=== PATIENT | female | born 1950 | race Caucasian/White ===

== ENCOUNTER 2021-02-12 18:18 | Emergency (ER) | payer MEDICARE, SELFPAY ==
--- NOTE | ~2021-02-12 | XR_ITS ---
EXAMINATION: XR CHEST CLINICAL INFORMATION: Nausea. Palpitation COMPARISON: Chest x-ray of 02/14/2020 TECHNIQUE: Frontal view of the chest was obtained. FINDINGS: Cardiomediastinal silhouette is stable with upper limits of normal cardiac size versus mild cardiomegaly. Multiple cardiac leads and wires overlie the chest. No abnormal tracheal deviation. The lungs are mildly hypoexpanded. Stable mild elevation of the right hemidiaphragm. No focal consolidation, changes of congestion or pleural effusions are seen. No pneumothorax. No acute osseous abnormality. Is 0.9 cm round sclerotic density noted projecting over the left humeral head, has nonaggressive appearance and most probably represents a bone island. XR/XR chest 1V IMPRESSION: No radiographic evidence of pneumonia. No acute pulmonary process. No significant interval change is noted compared to last study.
[2021-02-12 18:21] VITALS: BP 165/82; PULSE 70; RESP 18; TEMP 37.1; O2SAT 96; BMI 29.8
--- NOTE | 2021-02-12 18:30 | ECG_ITS ---
Test Reason : AFIB Blood Pressure : / mmHG Vent. Rate : 066 BPM Atrial Rate : 066 BPM P-R Int : 138 ms QRS Dur : 110 ms QT Int : 414 ms P-R-T Axes : 065 -05 -12 degrees QTc Int : 434 ms Sinus rhythm Possible Left atrial enlargement Incomplete right bundle branch block Nonspecific ST abnormality Abnormal ECG When compared with ECG of 16-FEB-2020 05:56, Incomplete right bundle branch block is now Present Referred By: Tiny Galvan Electronically Signed By:JALEN BOWERS MD
--- NOTE | 2021-02-12 18:38 | ED.NAVMDI ---
HPI - Nausea/Vomiting/Diarrhea General Chief complaint: Nausea/Vomiting/Diarrhea Stated complaint: AFIB Time Seen by Provider: 02/12/21 18:28 Source: patient Mode of arrival: ambulatory Limitations: no limitations History of Present Illness HPI Narrative: nausea since 330pm no associated CP/SOB takes metoprolol and xarelto states she usually feels like this when she is in afib MD elicited complaint: nausea Pertinent past history: other (afib) Onset (ago): hour(s) (330pm today) Associated nausea: Yes Associated abdominal pain: No Location of pain: none Severity: mild Exacerbating factors: none Relieving factors: none Context: other (hx of same when in afib) Associated symptoms: other (palpitations) Related Data Home Medications Medication Instructions Recorded Confirmed albuterol sulfate 90 mcg/actuation INHALATION 07/14/20 07/15/20 aerosol inhaler cholecalciferol (vitamin D3) 50 50 mcg PO DAILY 07/14/20 07/15/20 mcg (2,000 unit) capsule Previous Rx's Medication Instructions Recorded metoprolol succinate 25 mg 25 mg PO DAILY 90 Days #90 tab 10/19/20 tablet,extended release 24 hr ropinirole 1 mg tablet 2 mg PO BEDTIME 90 Days #180 tab 10/24/20 rivaroxaban 20 mg tablet 20 mg PO DAILY 90 Days #90 tab 11/22/20 ondansetron 4 mg PO Q8H PRN #20 tab 02/12/21 Allergies Allergy/AdvReac Type Severity Reaction Status Date / Time No Known Allergies Allergy Unverified 07/01/20 15:51 [No Known Allergies*] Review of Systems Review of Systems: Constitutional : No Weight loss, No Fever, No Chills, No Fatigue, No Malaise ENT/Mouth : No sore throat, No Rhinorrhea Eyes: No Eye Pain, No Swelling, No Redness Cardiovascular : No Chest Pain, No SOB, No Dyspnea on Exertion, No Orthopnea, No Edema, pos Palpitations Respiratory : No Cough, No Sputum, No Wheezing Gastrointestinal : pos Nausea, No Vomiting, No Diarrhea, No Constipation, No abdominal Pain, No Hematochezia, No Melena Genitourinary : No Dysuria, No Urinary Frequency, No Hematuria, Musculoskeletal : No joint pain, No Myalgias, No Joint Swelling Skin : No Skin Lesions, No rash Neuro : No Weakness, No Numbness, No Dizziness, No Headache Psych : No Anxiety/Panic, No Depression Heme/Lymph: No Bruising, No Bleeding,No Lymphadenopathy Endocrine : No Polyuria, No Polydipsia All other systems reviewed and are negative Gastrointestinal: Gastrointestinal: Reports nausea PMFSH Past Medical History Attestation statement: The following information was validated with the patient. Medical History Atrial fibrillation Essential hypertension Restless leg syndrome Surgical History History of cataract surgery Hx of cholecystectomy Family History Family History (Updated 07/14/20 @ 15:10 by ROBBY Gale) Father No problems noted. Mother No problems noted. Brother No problems noted. Social History Social History (Updated 02/12/21 @ 18:45 by Tiny Galvan DO) Smoking Status: Never smoker Use of substances other than those prescribed or required for medical reasons: No Advance Directives: No Advance Directives Information Provided: Yes Physical Exam Vital Signs: Vital Signs: Last Vital Signs Temp 98.1 F 02/12/21 20:00 Pulse 66 02/12/21 22:00 Resp 16 02/12/21 22:00 BP 117/69 02/12/21 22:00 Pulse Ox 93 02/12/21 22:00 Body Mass Index 29.8 Appearance: Alert. Oriented X3. No acute distress. Eyes: Pupils equal, round and reactive to light. ENT: Pharynx normal. Neck: Normal inspection. Neck supple. CVS: Normal heart rate and rhythm. Pulses normal. Respiratory: No respiratory distress. Breath sounds normal. Abdomen: Soft and nontender. Skin: Skin warm and dry. Normal skin color. Normal skin turgor. Extremities: No lower extremity edema. No calf ttp Neuro: Oriented X 3. No motor deficit. No sensory deficit. Course Course Course Narrative: feels better, repeat troponin negative and flat - anticipate DC home has been in NSR during her visit MDM - Nausea/Vomiting/Diarrhea MDM Narrative Medical decision making narrative: 70 yo female with hx of afib on metoprolol and xarelto comes in with nausea since 330pm thinking she is in afib - currently NSR - no CP/SOB at this time will obtain labs, treat with zofran and repeat troponin - she might have been in afib today but converted back to NSR given her EKG with incomplete RBBB looks the same it did in February 2020 when she converted out of afib to NSR Lab Data Result diagrams: 02/12/21 18:49 02/12/21 18:49 Labs: Lab Results 02/12/21 02/12/21 02/12/21 Range/Units 18:48 18:49 18:49 WBC 10.5 (4.8-10.8) X10*3/uL RBC 4.67 (4.20-5.50) X10*6/uL Hgb 12.9 (12.0-16.0) g/dl Hct 39.6 (37-47) % MCV 84.8 (80-98) fL MCH 27.6 (27.0-33.0) pg MCHC 32.6 (31.0-35.0) g/dl RDW 13.1 (11.0-16.0) % Plt Count 298 (160-400) X10*3/uL MPV 9.9 (9.4-12.3) fL Immature Gran % (Auto) 0.3 (0.0-0.4) % Neut % (Auto) 72.3 (45-73) % Lymph % (Auto) 16.2 L (20-40) % [place] % (Auto) 10.5 (2-11) % Eos % (Auto) 0.3 (0-4) % Baso % (Auto) 0.4 (0-2) % Lymph # (Auto) 1.7 (1.2-4.9) X10*3/uL [place] # (Auto) 1.1 (0.1-1.2) X10*3/uL Eos # (Auto) 0.0 (0.0-0.4) X10*3/uL Baso # (Auto) 0.0 (0.0-0.2) X10*3/uL Abs Immat Gran (auto) 0.03 (0.00-0.03) X10*3/uL Absolute Neuts (auto) 7.6 (2.0-8.3) X10*3/uL Absolute Nucleated RBC 0.000 (0.0-0.012) X10*3/uL Nucleated RBC % (auto) 0.0 (0.0-0.2) /100WBC PT 18.2 H (10.8-13.0) SEC INR 1.5 H (0.9-1.1) APTT 38.3 H (24.1-38.0) SEC Sodium (135-145) mmol/L Potassium (3.3-5.1) mmol/L Chloride (96-108) mmol/L Carbon Dioxide (22-29) mmol/L Anion Gap (12-20) BUN (9-16) mg/dL Creatinine (0.5-1.4) mg/dL Estim Creat Clear Calc Estimated GFR Random Glucose (60-115) mg/dL Calcium (8.4-10.2) mg/dL Magnesium (1.6-2.6) mg/dL Total Bilirubin (0.0-1.0) mg/dL Direct Bilirubin (0.0-0.5) mg/dL AST (5-31) U/L ALT (0-31) U/L Alkaline Phosphatase (39-117) U/L Troponin I High Sens 6.7 (<3.5-17.0) ng/L B-Natriuretic Peptide 145 H (<100) pg/mL Total Protein (6.5-8.0) g/dL Albumin (3.5-5.0) g/dL Lipase (8-78) U/L Urine Color Urine Appearance Urine pH (5.0-8.0) Ur Specific [place] (1.005-1.025) Urine Protein (NEG-TRACE) MG/DL Urine Glucose (UA) (NEG) MG/DL Urine Ketones (NEG) MG/DL Urine Blood (NEG) Urine Nitrite (NEG) Ur Leukocyte Esterase (NEG) Urine RBC (0) /HPF Urine WBC (0-4) /HPF Ur Squamous Epith Cells /LPF Urine Bacteria /LPF 02/12/21 02/12/21 02/12/21 Range/Units 18:49 19:53 22:09 WBC (4.8-10.8) X10*3/uL RBC (4.20-5.50) X10*6/uL Hgb (12.0-16.0) g/dl Hct (37-47) % MCV (80-98) fL MCH (27.0-33.0) pg MCHC (31.0-35.0) g/dl RDW (11.0-16.0) % Plt Count (160-400) X10*3/uL MPV (9.4-12.3) fL Immature Gran % (Auto) (0.0-0.4) % Neut % (Auto) (45-73) % Lymph % (Auto) (20-40) % [place] % (Auto) (2-11) % Eos % (Auto) (0-4) % Baso % (Auto) (0-2) % Lymph # (Auto) (1.2-4.9) X10*3/uL [place] # (Auto) (0.1-1.2) X10*3/uL Eos # (Auto) (0.0-0.4) X10*3/uL Baso # (Auto) (0.0-0.2) X10*3/uL Abs Immat Gran (auto) (0.00-0.03) X10*3/uL Absolute Neuts (auto) (2.0-8.3) X10*3/uL Absolute Nucleated RBC (0.0-0.012) X10*3/uL Nucleated RBC % (auto) (0.0-0.2) /100WBC PT (10.8-13.0) SEC INR (0.9-1.1) APTT (24.1-38.0) SEC Sodium 141 (135-145) mmol/L Potassium 4.8 (3.3-5.1) mmol/L Chloride 107 (96-108) mmol/L Carbon Dioxide 23 (22-29) mmol/L Anion Gap 16 (12-20) BUN 15 (9-16) mg/dL Creatinine 0.90 (0.5-1.4) mg/dL Estim Creat Clear Calc 61.6 Estimated GFR > 60 Random Glucose 107 (60-115) mg/dL Calcium 8.7 (8.4-10.2) mg/dL Magnesium 2.0 (1.6-2.6) mg/dL Total Bilirubin 0.3 (0.0-1.0) mg/dL Direct Bilirubin < 0.2 (0.0-0.5) mg/dL AST 19 (5-31) U/L ALT 17 (0-31) U/L Alkaline Phosphatase 67 (39-117) U/L Troponin I High Sens 7.4 (<3.5-17.0) ng/L B-Natriuretic Peptide (<100) pg/mL Total Protein 6.5 (6.5-8.0) g/dL Albumin 3.9 (3.5-5.0) g/dL Lipase 30 (8-78) U/L Urine Color STRAW Urine Appearance CLEAR Urine pH 6.0 (5.0-8.0) Ur Specific [place] 1.010 (1.005-1.025) Urine Protein NEG (NEG-TRACE) MG/DL Urine Glucose (UA) NEG (NEG) MG/DL Urine Ketones NEG (NEG) MG/DL Urine Blood TRACE (NEG) Urine Nitrite NEG (NEG) Ur Leukocyte Esterase NEG (NEG) Urine RBC 1-4 (0) /HPF Urine WBC 0 (0-4) /HPF Ur Squamous Epith Cells NONE /LPF Urine Bacteria NONE /LPF ECG Data Attestation: I personally reviewed and interpreted this ECG as follows: ECG interpretation date: 02/12/21 ECG interpretation time: 18:42 Interpretation: Rate: 66 Rhythm: NSR [place]: left Normal P waves. Normal DARIUS. incomplete RBBB ST T wave : nonspecific, no BILLY qTC: normal prior studies: unchanged 02/2020 The study has been interpreted contemporaneously by me. . Discharge Plan Discharge Clinical Impression: Nausea Patient Disposition: Home, Self-Care Instructions: Acute Nausea and Vomiting (ED) Additional Instructions: return to ED for any worsening symptoms or concerns Prescriptions: New ondansetron 4 mg tablet,disintegrating 4 mg PO Q8H PRN (Reason: nausea and vomiting) Qty: 20 RF: 0 No Action metoprolol succinate 25 mg tablet extended release 24 hr 25 mg PO DAILY 90 Days Qty: 90 RF: 1 ropinirole 1 mg tablet 2 mg PO BEDTIME 90 Days Qty: 180 RF: 4 rivaroxaban 20 mg tablet 20 mg PO DAILY 90 Days Qty: 90 RF: 2 albuterol sulfate 90 mcg/actuation HFA aerosol inhaler inhalation RF: 0 cholecalciferol (vitamin D3) 50 mcg (2,000 unit) capsule 50 mcg PO DAILY RF: 0 Referrals: Gume Robertson MD [Physician] - 2 days
[2021-02-12 18:54] LABS: MANUAL DIFF FLAG NO
[2021-02-12 18:56] LABS: Basophils Percent Auto 0.4 % (0-2); Eosinophils Percent Auto 0.3 % (0-4); Hematocrit 39.6 % (37-47); Hemoglobin 12.9 g/dl (12.0-16.0); Imm Gran Abs Auto 0.03 X10*3/uL (0.00-0.03); Imm Gran Pct Auto 0.3 % (0.0-0.4); Lymphocytes Absolute Auto 1.7 X10*3/uL (1.2-4.9); Lymphocytes Percent Auto 16.2 % (20-40); Mean Corpuscular HGB Conc 32.6 g/dl (31.0-35.0); Mean Corpuscular Hemoglobin 27.6 pg (27.0-33.0); Mean Corpuscular Volume 84.8 fL (80-98); Mean Platelet Volume 9.9 fL (9.4-12.3); Monocytes Absolute Auto 1.1 X10*3/uL (0.1-1.2); Monocytes Percent Auto 10.5 % (2-11); Neutrophils Absolute Auto 7.6 X10*3/uL (2.0-8.3); Neutrophils Percent Auto 72.3 % (45-73); Platelet Count 298 X10*3/uL (160-400); Red Blood Count 4.67 X10*6/uL (4.20-5.50); Red Cell Distribution Width 13.1 % (11.0-16.0); White Blood Count 10.5 X10*3/uL (4.8-10.8)
[2021-02-12] MEDS: ondansetron HCL 4 MG/2 ML VIAL IVPUSH ×2 (18:57→20:10)
[2021-02-12 19:13] LABS: INTERNATIONAL NORM RATIO 1.5 (0.9-1.1); Prothrombin Time 18.2 SEC (10.8-13.0)
[2021-02-12 19:16] LABS: Partial Thromboplastin Time 38.3 SEC (24.1-38.0)
[2021-02-12 19:24] LABS: Alanine Aminotransferase 17 U/L (0-31); Albumin Level 3.9 g/dL (3.5-5.0); Alkaline Phosphatase 67 U/L (39-117); Anion Gap 16 (12-20); Aspartate Amino Transferase 19 U/L (5-31); Bilirubin Direct < 0.2 mg/dL (0.0-0.5); Bilirubin Total 0.3 mg/dL (0.0-1.0); Blood Urea Nitrogen 15 mg/dL (9-16); Calcium 8.7 mg/dL (8.4-10.2); Carbon Dioxide 23 mmol/L (22-29); Chloride 107 mmol/L (96-108); Creatinine Clr Calc Pharmacy 61.6; Estimated Glomerular Filt Rate > 60; Glucose Random 107 mg/dL (60-115); Lipase 30 U/L (8-78); Potassium 4.8 mmol/L (3.3-5.1); Sodium 141 mmol/L (135-145); Total Protein 6.5 g/dL (6.5-8.0)
[2021-02-12 19:31] LABS: B Type Natriuretic Peptide 145 pg/mL (<100); Troponin-I High Sensitivity 6.7 ng/L (<3.5-17.0)
[2021-02-12 20:00] VITALS: BP 136/63; PULSE 60; RESP 16; TEMP 36.7; O2SAT 95
[2021-02-12 20:08] LABS: Glucose Urine UA NEG (NEG); Leukocyte Esterase Urine NEG (NEG); Nitrite Urine NEG (NEG); Urine Blood TRACE (NEG); Urine Ketones NEG (NEG); Urine Protein NEG (NEG-TRACE)
[2021-02-12 20:10] LABS: Appearance Urine CLEAR; Color Urine STRAW
--- NOTE | 2021-02-12 20:11 | PC.NURSE ---
pt medicated for nausea related to afib, pt is now in nsr no ectopy. skin pink warm and dry, rr even and reg no s/s of resp distress. pt aox3. pt states she has diarrhea when she has a upset stomach, pt is worring about being nausea when pt was in afib.
[2021-02-12 20:18] LABS: WBC Urine 0 /HPF (0-4)
[2021-02-12] MEDS: LORazepam 2 MG/ML VIAL 0.5 MG IVPUSH (20:53)
[2021-02-12 20:55] VITALS: BP 131/59; PULSE 59; RESP 18; O2SAT 95
[2021-02-12 22:00] VITALS: BP 117/69; PULSE 66; RESP 16; O2SAT 93
[2021-02-12] MEDS: rOPINIRole HCL 2 MG TABLET PO (22:17)
--- NOTE | 2021-02-12 22:20 | PC.NURSE ---
nausea resolved after receiving the ativan. good effect.
[2021-02-12 22:46] LABS: Troponin-I High Sensitivity 7.4 ng/L (<3.5-17.0)
== END 2021-02-12 23:29 | disposition home or self-care (01) ==
PROVIDERS: Emergency Provider Emergency Medicine; PCP Family Medicine
DX: R11.2 Nausea with vomiting, unspecified (principal); I48.91 Unspecified atrial fibrillation; Z79.899 Other long term (current) drug therapy
CPT/HCPCS: 36415; 71045; 80048; 80076; 81001; 83690; 83735; 83880; 84484; 85025; 85610; 85730; 93005; 96366; 96374; 96375; 96376; 99284; J2060; J2405

== ENCOUNTER → 2021-02-25 11:08 | Outpatient (BNVA) | payer MEDICARE, SELFPAY | PROVIDERS: PCP Family Medicine; Referring Provider Family Medicine; Visit Provider Internal Medicine Cardiovascular Disease | DX: I48.0 Paroxysmal atrial fibrillation (principal); I10 Essential (primary) hypertension | CPT/HCPCS: 99212 ==

== ENCOUNTER → 2021-04-06 07:18 | Outpatient (REF) | payer MEDICARE, SELFPAY ==
--- NOTE | 2021-04-06 07:22 | CA_ITS ---
Transthoracic Echocardiogram Patient (Last, First, Middle): Anurag Baron L Gender: Female Date of : 1950 Age: 71 Procedure Date: 04/06/2021 Procedure Type: Transthoracic Echocardiogram Location: OP Height: 167.64 cm Weight: 81.65 kg BSA: 1.91 m2 Heart Rate: bpm BP: 122 / 80 mmHg Registered Clinical Dietitian: Referring MD: Gume Robertson MD Film Historian: Gume Robertson MD Symptoms: I48.0 - Paroxysmal atrial fibrillation Study Quality: Good ECG Rhythm: Sinus Conclusions: - 1. Normal LV systolic function with elevated LVEDP 2. Mild left atrial enlargement 3. Mild mitral regurgitation 4. Normal RV systolic pressure 5. No pericardial effusion Findings Left Ventricle Normal left ventricular size, thickness, and systolic function. The visually estimated ejection fraction is between 60-65%. There is no evidence of regional wall motion abnormalities. Spectral Doppler is indicative of an impaired relaxation filling pattern. Elevated left ventricular end diastolic pressure. E/E prime ratio is between 8 and 15 consistent with indeterminate filling pressures. There is mild septal asymmetric hypertrophy. Right Ventricle Normal right ventricular cavity size and systolic function. Atria The left atrium is mildly dilated. There is no evidence of interatrial shunt. The right atrium is normal in size. Aortic Valve Normal aortic valve structure and function. There is no aortic valve stenosis. There is no aortic valve regurgitation. Mitral Valve There is mild anterior mitral leaflet thickening. There is mild mitral valve regurgitation. There is no mitral valve stenosis. Pulmonic Valve The pulmonic valve is likely normal. There is trace to mild pulmonic valve regurgitation. Tricuspid Valve Normal tricuspid valve structure. There is trace tricuspid valve regurgitation. The right ventricular systolic pressure is normal. The right ventricular systolic pressure is 29 mmHg. Normal right atrial pressure. There is no evidence of pulmonary hypertension. Great Vessels All visible segments of the aorta are normal in size. The pulmonary artery was not well visualized. Venous The inferior vena cava is normal in size and collapses greater than 50% with inspiration. Pericardium/Pleural There is no evidence of pericardial effusion. Prior Study Comparison No significant change compared to prior study dated: 02/16/2020. Measurements 2D Linear Measurements IVSd: 1.32 0.6-0.9/0.6-1.0 cm LVIDd: 3.79 3.9-5.3/4.2-5.9 cm LVIDs: 2.64 2.0-3.6 cm LVPWd: 0.89 0.7-1.1 cm Ao Root: 2.78 2.1-3.5 cm LV Mass: 240.93 67-162/88-224 g LVOT Diam: 1.98 3.0+(-)1.3 cm Mitral Valve MV Pk E: 0.76 MV PK A: 0.70 MV Decel Time: 226.59 E/A: 1.09 E'Lateral: 0.08 E'Medial: 0.06 Decel [place]: 3.34 Aortic Valve AoV Pk Oleg: 1.44 AoV Mn Oleg: 1.02 AoV VTI: 0.38 AoV Pk Grad: 8.33 Aov Mn Grad: 4.72 LVOT LVOT Pk Oleg: 1.03 LVOT Mn Oleg: 0.64 LVOT VTI: 0.31 LVOT Pk Grad: 4.21 LVOT Mn Grad: 1.99 LVOT Diam: 1.98 LVOT Area: 3.09 Diastolic Function MV Pk E: 0.76 MV Pk A: 0.70 E/A: 1.09 E'Medial: 0.06 E' Laterial: 0.08 Tricuspid Valve TR Pk Oleg: 2.55 TR Pk Grad: 26.11 RA Press: 3.00 RVSP: 29.00 Great Vessels Aorta Ao Root-2D: 2.78 2.0-3.7 cm Ao Asc: 2.78 2.1-3.4 cm Pulmonary Valve PV Pk Oleg: 0.94 Peak PV Grad: 3.55 Updated in Other Vendor System with Status of Final Gume Robertson MD electronically signed on 04/06/2021 3:26:30 PM with status of Final
--- NOTE | 2021-04-06 07:24 | ECG_ITS ---
Hook-up date: 2021-04-06 08:40:00 Duration: 25:37:00 Test Indications: PAF Medications: 40733 QRS complexes 18 Ventricular ectopics which represent <1 % of total QRS comp. 70 Supraventricular ectopics which represent <1 % of total QRS comp. * Paced QRS complexs which represent % of total QRS comp. VENTRICULAR ECTOPY 16 Isolated 0 Bigeminal Cycles 1 Couplets 0 Runs 0 Beats in Runs * Beats LONGEST at * BPM at :: -- * Beats FASTEST at * BPM at :: -- SUPRAVENTRICULAR ECTOPY 55 Isolated 4 Couplets 2 Runs 7 Beats in Runs 4 Beats LONGEST at 116 BPM at 04:18:46 2021-04-07 3 Beats FASTEST at 140 BPM at 21:20:18 2021-04-06 HEART RATES 48 MIN at 05:48:48 2021-04-07 59 AVG 99 MAX at 06:53:13 2021-04-07 LONGEST RR 1.5120 secs at 01:24:25 2021-04-07 S-T LEVELS Channel 1 - 128 mm at 08:40:00 2021-04-06 - 128 mm at 08:40:00 2021-04-06 Channel 2 - 128 mm at 08:40:00 2021-04-06 - 128 mm at 08:40:00 2021-04-06 Channel 3 - 128 mm at 02:75:91 -- - 128 mm at 02:75:91 Basic rhythm Normal sinus rhythm No long pause or profound bradycardia Frequent Sinus bradycardia , 51% of time HR < 60 bpm Rare ectopics Patient reported symptoms of fluttering correlated with NSR Referred By: Gume Robertson Overread By: GUME ROBERTSON MD
== END ==
LOC: HO.CARD 07:18
PROVIDERS: PCP Family Medicine; Visit Provider Internal Medicine Cardiovascular Disease
DX: I48.0 Paroxysmal atrial fibrillation (principal)
CPT/HCPCS: 93225; 93226; 93306

== ENCOUNTER → 2021-04-26 10:48 | Outpatient (BNVA) | payer MEDICARE, SELFPAY | PROVIDERS: PCP Family Medicine; Visit Provider Internal Medicine | DX: G25.81 Restless legs syndrome (principal); J45.909 Unspecified asthma, uncomplicated | CPT/HCPCS: 99212 ==

== ENCOUNTER → 2021-04-27 09:20 | Outpatient (BNVA) | payer MEDICARE, SELFPAY | PROVIDERS: PCP Family Medicine; Referring Provider Family Medicine; Visit Provider Internal Medicine Cardiovascular Disease | DX: I48.0 Paroxysmal atrial fibrillation (principal); I10 Essential (primary) hypertension | CPT/HCPCS: 93005; 99212 ==

== ENCOUNTER 2021-07-12 09:23 | Outpatient (REF) | payer MEDICARE, SELFPAY ==
[2021-07-12 11:12] LABS: Alanine Aminotransferase 23 U/L (0-31); Albumin Level 4.1 g/dL (3.5-5.0); Alkaline Phosphatase 82 U/L (39-117); Anion Gap 11 (12-20); Aspartate Amino Transferase 21 U/L (5-31); Bilirubin Total 0.4 mg/dL (0.0-1.0); Blood Urea Nitrogen 14 mg/dL (9-16); Calcium 9.2 mg/dL (8.4-10.2); Carbon Dioxide 26 mmol/L (22-29); Chloride 108 mmol/L (96-108); Cholesterol 189 mg/dL; Estimated Glomerular Filt Rate > 60; Glucose Fasting 99 mg/dL (60-99); HDL Cholesterol 55 mg/dL; LDL Cholesterol Calculated 83 mg/dl; Potassium 4.6 mmol/L (3.3-5.1); Sodium 140 mmol/L (135-145); Total Protein 6.9 g/dL (6.5-8.0); Triglycerides 257 mg/dL
[2021-07-12 11:32] LABS: TSH reflex Free T4 0.77 uIU/mL (0.32-4.0)
== END 2021-07-12 09:24 | disposition home or self-care (01) ==
LOC: HO.LAB 09:23
PROVIDERS: PCP Family Medicine; Referring Provider Family Medicine; Visit Provider Internal Medicine Cardiovascular Disease
DX: Z00.00 Encounter for general adult medical examination without abnormal findings (principal); I48.0 Paroxysmal atrial fibrillation; I10 Essential (primary) hypertension
CPT/HCPCS: 36415; 80053; 80061; 84443; 93005; 99212

== ENCOUNTER 2022-02-24 16:44 | Emergency (ER) | payer MEDICARE, SELFPAY ==
--- NOTE | ~2022-02-24 | XR_ITS ---
EXAMINATION: XR CHEST CLINICAL INFORMATION: A. Fib COMPARISON: 02/12/2021 TECHNIQUE: Frontal view of the chest was obtained. FINDINGS: No significant abnormality is noted involving the heart, lungs, mediastinum, bony thorax or soft tissues. XR/XR chest 1V IMPRESSION: Unremarkable examination.
[2022-02-24 16:50] VITALS: BP 138/90; PULSE 132; RESP 19; TEMP 36.6; O2SAT 99; BMI 29.3
--- NOTE | 2022-02-24 16:53 | ECG_ITS ---
Test Reason : A FIB Blood Pressure : / mmHG Vent. Rate : 119 BPM Atrial Rate : 256 BPM P-R Int : 000 ms QRS Dur : 124 ms QT Int : 328 ms P-R-T Axes : 097 -33 -17 degrees QTc Int : 461 ms Atrial flutter with variable A-V block Left axis deviation Right bundle branch block Abnormal ECG When compared with ECG of 12-FEB-2021 18:33, Atrial flutter has replaced Sinus rhythm Vent. rate has increased BY 53 BPM Right bundle branch block has replaced Incomplete right bundle branch block Referred By: Generic ED Physician Electronically Signed By:JALEN BOWERS MD
[2022-02-24 17:51] LABS: MANUAL DIFF FLAG NO
[2022-02-24 18:01] LABS: INTERNATIONAL NORM RATIO 1.2 (0.9-1.1); Prothrombin Time 13.8 SEC (9.9-13.0)
[2022-02-24 18:05] LABS: Anion Gap 11 (12-20); Blood Urea Nitrogen 15 mg/dL (9-16); Calcium 9.6 mg/dL (8.4-10.2); Carbon Dioxide 25 mmol/L (22-29); Chloride 110 mmol/L (96-108); Creatinine Clr Calc Pharmacy 62.3; Estimated Glomerular Filt Rate > 60; Glucose Random 91 mg/dL (60-115); Potassium 4.2 mmol/L (3.3-5.1); Sodium 142 mmol/L (135-145)
[2022-02-24 18:09] LABS: Basophils Absolute Auto 0.1 X10*3/uL (0.0-0.2); Basophils Percent Auto 0.6 % (0-2); Eosinophils Absolute Auto 0.1 X10*3/uL (0.0-0.4); Eosinophils Percent Auto 1.4 % (0-4); Hematocrit 40.9 % (37.0-47.0); Hemoglobin 13.4 g/dl (12.0-16.0); Imm Gran Abs Auto 0.06 X10*3/uL (0.00-0.03); Imm Gran Pct Auto 0.7 % (0.0-0.4); Lymphocytes Absolute Auto 2.7 X10*3/uL (1.2-4.9); Lymphocytes Percent Auto 31.3 % (20-40); Mean Corpuscular HGB Conc 32.8 g/dl (31.0-35.0); Mean Corpuscular Hemoglobin 28.2 pg (27.0-33.0); Mean Corpuscular Volume 86.1 fL (80.0-98.0); Mean Platelet Volume 10.4 fL (9.4-12.3); Monocytes Absolute Auto 0.8 X10*3/uL (0.1-1.2); Monocytes Percent Auto 8.9 % (2-11); Neutrophils Absolute Auto 4.9 x10*3/uL (2.0-8.3); Neutrophils Percent Auto 57.1 % (45-73); Platelet Count 324 X10*3/uL (160-400); Red Blood Count 4.75 X10*6/uL (4.20-5.50); Red Cell Distribution Width 13.2 % (11.0-16.0); White Blood Count 8.5 X10*3/uL (4.8-10.8)
[2022-02-24 18:12] LABS: Troponin-I High Sensitivity 4.5 ng/L (<3.5-17.0)
--- NOTE | 2022-02-24 20:01 | ECG_ITS ---
Test Reason : REPEAT EKG Blood Pressure : / mmHG Vent. Rate : 058 BPM Atrial Rate : 058 BPM P-R Int : 150 ms QRS Dur : 114 ms QT Int : 434 ms P-R-T Axes : 065 -21 -13 degrees QTc Int : 426 ms Sinus bradycardia Right bundle branch block Minimal voltage criteria for LVH, may be normal variant ( R in aVL ) Abnormal ECG When compared with ECG of 24-FEB-2022 17:28, Sinus rhythm has replaced Atrial flutter Vent. rate has decreased BY [address] no longer elevated in Inferior leads Referred By: Racheal Brunson Electronically Signed By:JALEN BOWERS MD
--- NOTE | 2022-02-24 20:06 | ED.GENADULT ---
HPI - General Adult General Chief complaint: Arrhythmia/Palpitations Stated complaint: Afib Time Seen by Provider: 02/24/22 18:43 Source: patient Mode of arrival: ambulatory History of Present Illness HPI narrative: 71-year-old with a past medical history of asthma, hypertension, restless leg syndrome, AFib on metoprolol and flecainide presenting to the ED complaining of palpitations beginning around 15:00. Admits to taking additional 100 mg of flecainide when symptoms began. Denies chest pain, shortness of breath, fever, cough, lightheadedness/ dizziness, pedal edema, calf pain, abdominal pain, recent illness Onset (ago): hour(s) Related Data Home Medications Medication Instructions Recorded Confirmed albuterol sulfate 90 mcg/actuation INHALATION 07/14/20 07/12/21 aerosol inhaler cholecalciferol (vitamin D3) 50 50 mcg PO DAILY 07/14/20 07/12/21 mcg (2,000 unit) capsule Previous Rx's Medication Instructions Recorded ondansetron 4 mg disintegrating 4 mg PO Q8H PRN #20 tab 02/25/21 tablet flecainide 50 mg tablet 50 mg PO Q12H #200 tab 04/27/21 metoprolol succinate 25 mg 25 mg PO DAILY 90 Days #100 tab 04/27/21 tablet,extended release 24 hr rivaroxaban 20 mg tablet 20 mg PO DAILY 90 Days #90 tab 04/27/21 pramipexole 0.25 mg tablet 0.25 mg PO BEDTIME 90 Days #90 tab 07/11/21 flecainide 100 mg tablet 100 mg PO Q12H 14 Days #28 tab 02/24/22 Allergies Allergy/AdvReac Type Severity Reaction Status Date / Time No Known Allergies Allergy Verified 07/06/21 10:02 [No Known Allergies*] Review of Systems Review of Systems: Constitutional: No Fever, No Chills, No Fatigue, No Malaise ENT/Mouth: No Hearing loss, No Ear Pain, No sore throat, No Rhinorrhea, No Swallowing Difficulty Eyes: No Eye Pain, No Swelling, No Redness Cardiovascular: No Chest Pain, No SOB, No Dyspnea on Exertion, No Orthopnea, No Edema, + Palpitations Respiratory: No Cough, No Sputum, No Wheezing, No Dyspnea Gastrointestinal: No Nausea, No Vomiting, No Diarrhea, No Constipation, No Abdominal pain Genitourinary: No Dysuria, No Urinary Frequency, No Flank Pain, No Urinary Flow Changes, No Hesitancy Musculoskeletal: No joint pain, No Myalgias, No Joint Swelling Skin: No Skin Lesions, No rash Neuro: No Weakness, No Numbness, No Paresthesias, No Loss of Consciousness, No Dizziness, No Headache Yes all other systems are reviewed and are negative [facility] Past Medical History Attestation statement: The following information was validated with the patient. Medical History Brittle asthma Bronchial asthma Essential hypertension Paroxysmal atrial fibrillation Restless leg syndrome Surgical History History of cataract surgery Hx of cholecystectomy Family History Family History Father No problems noted. Mother No problems noted. Brother No problems noted. Social History Social History Housing: House Patient Tobacco Use Status: Never used Tobacco Advance Directives: No Advance Directives Information Provided: Yes Current occupational status: retired Physical Exam ED Vital Signs: Vital Signs - 24 hr 02/24/22 16:50 02/24/22 20:10 Temperature 98 F Pulse Rate 132 H 71 Respiratory Rate 19 15 Blood Pressure 138/90 H Pulse Oximetry 99 BMI result Body Mass Index 29.3 Const General: cooperative, healthy appearing and no acute distress Orientation/consciousness: patient oriented x3 Limitations: no limitations HENNC Head: Yes normal to inspection and Yes atraumatic Ears: hearing grossly normal bilaterally General nose exam: Normal external nose present Face and sinus: Yes normal facial exam Eyes General: appearance normal, both eyes and all related structures EOM: EOMs intact bilaterally Neck Neck: Yes normal visual inspection and Yes no meningeal signs Resp Effort & Inspection: normal respiratory effort and no respiratory distress Auscultation: clear to auscultation bilaterally, no rales, no rhonchi and no wheezes Cardio Rate: regular rate Heart sounds: S1 normal heart sound present and S2 normal heart sound present GI Inspection: Yes normal to inspection Palpation (GI): Soft to palpation, nontender and no guarding Skin Rashes: no rashes Wounds: no wounds Neuro General: patient oriented x3, tone normal and no meningeal signs Gait exam (Neuro): Normal gait present Extrem General: Yes normal to inspection, Yes no pedal edema and Yes no calf tenderness Course Course Course Narrative: - no leukocytosis. BNP chronically elevated Upon my evaluation patient is in sinus rhythm. Repeat EKG showing sinus bradycardia at a rate of 58. - Case discussed with patient's tooth cutter clutch, Dr. Robertson, recommended increasing patient's daily flecainide to 100 mg b.i.d. Does not recommend any additional doses tonight, patient can be discharged 2139--XR chest 1V IMPRESSION: Unremarkable examination. >> results discussed with patient including worrisome signs and symptoms and strict return precautions and need to follow-up with Dr. Robertson which she reports she has on Sunday Medical Decision Making MDM Narrative Medical decision making narrative: 71-year-old with a past medical history of asthma, hypertension, restless leg syndrome, AFib on metoprolol and flecainide presenting to the ED complaining of palpitations beginning around 15:00. On exam initially tachycardic to 132, initially EKG showing a flutter with a rate of 119, patient was in waiting room for 3+ hours, on my evaluation heart rate in 60s. Lungs CTA, no pedal edema. Likely patient converted s/p flecainide at home. Plan: Repeat EKG, labs, CXR, consult Cardiology Medical Records Medical records reviewed: Yes I reviewed the patient's medical records. Lab Data Lab results reviewed: Yes I reviewed the patient's lab results. Result diagrams: 02/24/22 17:41 02/24/22 17:41 Labs: Lab Results 02/24/22 02/24/22 02/24/22 Range/Units 17:41 17:41 17:41 WBC 8.5 (4.8-10.8) X10*3/uL RBC 4.75 (4.20-5.50) X10*6/uL Hgb 13.4 (12.0-16.0) g/dl Hct 40.9 (37.0-47.0) % MCV 86.1 (80.0-98.0) fL MCH 28.2 (27.0-33.0) pg MCHC 32.8 (31.0-35.0) g/dl RDW 13.2 (11.0-16.0) % Plt Count 324 (160-400) X10*3/uL MPV 10.4 (9.4-12.3) fL Immature Gran % (Auto) 0.7 H (0.0-0.4) % Neut % (Auto) 57.1 (45-73) % Lymph % (Auto) 31.3 (20-40) % Dodge % (Auto) 8.9 (2-11) % Eos % (Auto) 1.4 (0-4) % Baso % (Auto) 0.6 (0-2) % Lymph # (Auto) 2.7 (1.2-4.9) X10*3/uL Dodge # (Auto) 0.8 (0.1-1.2) X10*3/uL Eos # (Auto) 0.1 (0.0-0.4) X10*3/uL Baso # (Auto) 0.1 (0.0-0.2) X10*3/uL Abs Immat Gran (auto) 0.06 H (0.00-0.03) X10*3/uL Absolute Neuts (auto) 4.9 (2.0-8.3) x10*3/uL Absolute Nucleated RBC 0.000 (0.0-0.012) X10*3/uL Nucleated RBC % (auto) 0.0 (0.0-0.2) /100WBC PT (9.9-13.0) SEC INR (0.9-1.1) Sodium 142 (135-145) mmol/L Potassium 4.2 (3.3-5.1) mmol/L Chloride 110 H (96-108) mmol/L Carbon Dioxide 25 (22-29) mmol/L Anion Gap 11 L (12-20) BUN 15 (9-16) mg/dL Creatinine 0.87 (0.5-1.4) mg/dL Estim Creat Clear Calc 62.3 Estimated GFR > 60 Random Glucose 91 (60-115) mg/dL Calcium 9.6 (8.4-10.2) mg/dL Magnesium 1.9 (1.6-2.6) mg/dL Total Bilirubin 0.2 (0.0-1.0) mg/dL Direct Bilirubin 0.2 (0.0-0.5) mg/dL AST 20 (5-31) U/L ALT 24 (0-31) U/L Alkaline Phosphatase 83 (39-117) U/L Troponin I High Sens 4.5 (<3.5-17.0) ng/L B-Natriuretic Peptide 192 H (<100) pg/mL Total Protein 7.1 (6.5-8.0) g/dL Albumin 4.0 (3.5-5.0) g/dL 02/24/22 Range/Units 17:41 WBC (4.8-10.8) X10*3/uL RBC (4.20-5.50) X10*6/uL Hgb (12.0-16.0) g/dl Hct (37.0-47.0) % MCV (80.0-98.0) fL MCH (27.0-33.0) pg MCHC (31.0-35.0) g/dl RDW (11.0-16.0) % Plt Count (160-400) X10*3/uL MPV (9.4-12.3) fL Immature Gran % (Auto) (0.0-0.4) % Neut % (Auto) (45-73) % Lymph % (Auto) (20-40) % Dodge % (Auto) (2-11) % Eos % (Auto) (0-4) % Baso % (Auto) (0-2) % Lymph # (Auto) (1.2-4.9) X10*3/uL Dodge # (Auto) (0.1-1.2) X10*3/uL Eos # (Auto) (0.0-0.4) X10*3/uL Baso # (Auto) (0.0-0.2) X10*3/uL Abs Immat Gran (auto) (0.00-0.03) X10*3/uL Absolute Neuts (auto) (2.0-8.3) x10*3/uL Absolute Nucleated RBC (0.0-0.012) X10*3/uL Nucleated RBC % (auto) (0.0-0.2) /100WBC PT 13.8 H (9.9-13.0) SEC INR 1.2 H (0.9-1.1) Sodium (135-145) mmol/L Potassium (3.3-5.1) mmol/L Chloride (96-108) mmol/L Carbon Dioxide (22-29) mmol/L Anion Gap (12-20) BUN (9-16) mg/dL Creatinine (0.5-1.4) mg/dL Estim Creat Clear Calc Estimated GFR Random Glucose (60-115) mg/dL Calcium (8.4-10.2) mg/dL Magnesium (1.6-2.6) mg/dL Total Bilirubin (0.0-1.0) mg/dL Direct Bilirubin (0.0-0.5) mg/dL AST (5-31) U/L ALT (0-31) U/L Alkaline Phosphatase (39-117) U/L Troponin I High Sens (<3.5-17.0) ng/L B-Natriuretic Peptide (<100) pg/mL Total Protein (6.5-8.0) g/dL Albumin (3.5-5.0) g/dL ECG Data Attestation: I personally reviewed and interpreted this ECG as follows: Prior ECG tracings: available for review Interpretation: EKG showing a flutter with a rate of 119. Right bundle branch block. QTC 461. No STEMI Discharge Plan Discharge Clinical Impression: Atrial fibrillation with RVR Patient Disposition: Home, Self-Care Instructions: A-fib (Atrial Fibrillation) (DC) Additional Instructions: after speaking to your tooth cutter clutch you need to increase her flecainide to 100 mg twice a day. Make she follow-up with him on Sunday as scheduled. If you develop palpitations/ feel like youre in AFib again please return to the emergency department. Your blood work was otherwise reassuring Prescriptions: New flecainide 100 mg tablet 100 mg PO Q12H 14 Days Qty: 28 0RF No Action pramipexole 0.25 mg tablet 0.25 mg PO BEDTIME 90 Days Qty: 90 2RF albuterol sulfate 90 mcg/actuation HFA aerosol inhaler inhalation 0RF cholecalciferol (vitamin D3) 50 mcg (2,000 unit) capsule 50 mcg PO DAILY 0RF ondansetron 4 mg tablet,disintegrating 4 mg PO Q8H PRN (Reason: nausea and vomiting) Qty: 20 0RF flecainide 50 mg tablet 50 mg PO Q12H Qty: 200 2RF metoprolol succinate 25 mg tablet extended release 24 hr 25 mg PO DAILY 90 Days Qty: 100 2RF rivaroxaban 20 mg tablet 20 mg PO DAILY 90 Days Qty: 90 2RF Referrals: Gume Robertson MD [Physician] - 3 days ( as scheduled) Interventions: ED Discharge Assessment Last Done: 02/24/22 21:54 Discharge Date/Time: 02/24/22 22:06
[2022-02-24 20:10] VITALS: PULSE 71; RESP 15
[2022-02-24 20:25] LABS: B Type Natriuretic Peptide 192 pg/mL (<100)
[2022-02-24 20:32] LABS: Alanine Aminotransferase 24 U/L (0-31); Alkaline Phosphatase 83 U/L (39-117); Aspartate Amino Transferase 20 U/L (5-31); Bilirubin Direct 0.2 mg/dL (0.0-0.5); Bilirubin Total 0.2 mg/dL (0.0-1.0); Magnesium 1.9 mg/dL (1.6-2.6); Total Protein 7.1 g/dL (6.5-8.0)
[2022-02-24 21:10] VITALS: PULSE 55
--- NOTE | 2022-02-24 21:11 | PC.NURSE ---
MD werner at bedside, aware of low temp and BP. verbal order to dc 500 cc NS bolus.
== END 2022-02-24 22:06 | disposition home or self-care (01) ==
PROVIDERS: Physician Assistant; Emergency Provider Internal Medicine; PCP Family Medicine
DX: I48.0 Paroxysmal atrial fibrillation (principal); J45.909 Unspecified asthma, uncomplicated; I10 Essential (primary) hypertension; Z79.899 Other long term (current) drug therapy
CPT/HCPCS: 36415; 71045; 80048; 80076; 83735; 83880; 84484; 85025; 85610; 93005; 99283; 99284

== ENCOUNTER → 2022-02-27 09:42 | Outpatient (BNVA) | payer MEDICARE, SELFPAY | PROVIDERS: PCP Family Medicine; Referring Provider Family Medicine; Visit Provider Internal Medicine Cardiovascular Disease | DX: I48.0 Paroxysmal atrial fibrillation (principal); I10 Essential (primary) hypertension | CPT/HCPCS: 93005; 99212 ==

== ENCOUNTER → 2022-03-09 07:13 | Outpatient (REF) | payer MEDICARE, SELFPAY ==
--- NOTE | 2022-03-09 07:17 | HM_ITS ---
Conclusion: 1. Patient was monitored for total period of 2 days and 11 hours 2. Baseline was sinus rhythm with average heart of 61 beats per minute 3. No significant pauses noted 4. Rare ectopy is noted 5. No episodes of atrial fibrillation noted 6. No patient reported events MTDD
== END ==
LOC: HO.CARD 07:13
PROVIDERS: Visit Provider Internal Medicine Cardiovascular Disease
DX: R42 Dizziness and giddiness (principal)
CPT/HCPCS: 93242

== ENCOUNTER → 2022-05-02 13:38 | Outpatient (BNVA) | payer MEDICARE, SELFPAY | PROVIDERS: PCP Family Medicine; Referring Provider Family Medicine; Visit Provider Internal Medicine Cardiovascular Disease | DX: R00.1 Bradycardia, unspecified (principal); I48.0 Paroxysmal atrial fibrillation; Z79.01 Long term (current) use of anticoagulants; Z79.899 Other long term (current) drug therapy | CPT/HCPCS: 93005; 99212 ==